=== PATIENT | female | born 1990 | race Caucasian/White ===

== ENCOUNTER 2019-08-25 10:22 | Emergency (ER) | payer BC ==
[~2019-08-25] VITALS: Ht 170.2 cm; Wt 75.0 kg
[2019-08-25 10:45] VITALS: TEMP 98.4
[2019-08-25 11:31] LABS: BASO # 0.1 (0.0-0.2); BASO % 0.9 % (0.0-2.0); EOS # 0.3 (0.0-0.7); EOS % 5.7 % (0-4.0); GRAN # 3.3 (1.4-6.5); GRAN % 57.2 % (42.2-75.2); HEMATOCRIT 38.6 % (37.0-47.0); HEMOGLOBIN 12.9 g/dl (12.5-16.0); LYMPH # 1.6 (1.2-3.4); LYMPH % 27.3 % (20.0-51.0); MEAN CELL VOLUME 92 fl (80.0-100.0); MEAN CORPUSCULAR HEMOGLOBIN 31 pg (27.0-31.0); MEAN CORPUSCULAR HGB CONC 33 g/dl (33.0-37.0); MEAN PLATELET VOLUME 10.4 fl (7.4-10.4); MONO # 0.5 (0.1-0.6); MONO % 8.7 % (1.7-9.3); PLATELET COUNT 257 K/mm3 (130-400); RED BLOOD COUNT 4.22 M/mm3 (4.10-5.30)
[2019-08-25 11:36] LABS: COLLECTION METHOD CLEAN CATCH
[2019-08-25 11:42] LABS: MUCOUS Present /lpf; PH 8 (5-8); URINE APPEARANCE Clear; URINE BACTERIA Rare /hpf; URINE BILIRUBIN Negative (NEGATIVE); URINE BLOOD Negative (NEGATIVE); URINE COLOR Yellow; URINE GLUCOSE Negative (NEGATIVE); URINE KETONE Negative (NEGATIVE); URINE LEUKOCYTE ESTERASE Negative (NEGATIVE); URINE NITRATE Negative (NEGATIVE); URINE PROTEIN(semi-quant) Negative (NEGATIVE); URINE RBC None Seen /hpf; URINE UROBILINOGEN Negative (NEGATIVE)
[2019-08-25 11:46] LABS: ALANINE AMINOTRANSFERASE 14 U/L (9-52); ALBUMIN 4.4 gm/dL (3.5-5.0); ALKALINE PHOSPHATASE 50 U/L (50-136); ANION GAP 8 mmol/L (7-16); AST,SGOT 26 U/L (15-37); BILIRUBIN,TOTAL 0.5 mg/dL (0.0-1.0); BLOOD UREA NITROGEN 10 mg/dL (7-17); CALCIUM 8.9 mg/dL (8.4-10.2); CARBON DIOXIDE 26 mmol/L (22-30); CHLORIDE 106 mmol/L (98-107); CREATININE, serum 0.59 (0.52-1.25); GLUCOSE 95 mg/dL (74-106); LIPASE 94 U/L (23-300); POTASSIUM 3.8 mmol/L (3.4-5.0); SODIUM 139 mmol/L (137-145)
[2019-08-25 11:48] LABS: C-REACTIVE PROTEIN < 0.5 mg/dL (0.0-0.9)
[2019-08-25 11:53] LABS: ERYTHROCYTE SEDIMENTATION RATE 1 mm/hr (0-20)
[2019-08-25 12:10] LABS: HCG,QUANTITATIVE 4525 mIU/mL (0-5)
[2019-08-25] MEDS ORDERED: MACROBID 1100 MG/CAP PO (15:14)
[2019-08-25 15:29] VITALS: BP 120/79; PULSE 71
== END 2019-08-25 15:31 | disposition home or self-care (01) ==
LOC: COL.ER 10:22
PROVIDERS: Emergency Medicine
DX: O23.90 Unspecified genitourinary tract infection in pregnancy, unspecified trimester (principal); R82.71 Bacteriuria; Z3A.00 Weeks of gestation of pregnancy not specified